=== PATIENT | male | born 1950 | race Caucasian/White ===

== ENCOUNTER → 2019-12-02 | Outpatient (REF) | payer MEDICARE, OTHER ==
[~2019-12-02] MED LIST: AMIO100T5 GT; ASPI-1 PO; GABA-843 PO; LISI-542 PO; METO50TA7 PO; NITR4TASL SL; PRIL20CA9 PO; TELM1TAB37 PO; TERA5CAP3 PO; ULTR37.54 PO; VITA100067 PO; XARE20TA PO; ZOCO40TA PO; ZOSTINJ SC
[2019-12-03 19:02] LABS: AMORPHOUS SEDIMENT SMALL (NEGATIVE); APPEARANCE, URINE CLEAR (CLEAR); BACTERIA, URINE AUTO NEGATIVE (NEGATIVE); BILIRUBIN, URINE AUTO NEGATIVE (NEGATIVE); BLOOD, URINE BLOOD NEGATIVE (NEGATIVE); COLOR, URINE YELLOW (YELLOW); GLUCOSE, URINE (UA) AUTO NEGATIVE (NEGATIVE); KETONE, URINE AUTO NEGATIVE (NEGATIVE); LEUKOCYTE ESTERASE, URINE AUTO NEGATIVE (NEGATIVE); MUCUS, URINE SMALL (NEGATIVE); NITRITE, URINE AUTO NEGATIVE (NEGATIVE); PROTEIN, URINE AUTO NEGATIVE (NEGATIVE); RBC, URINE AUTO 0 /HPF (0-3); SQUAMOUS EPITHELIAL CELL UR AU 0 /HPF (0-6); UROBILINOGEN, URINE AUTO 0.2 mg/dL (0.0-2.0); WBC, URINE AUTO 0 /HPF (0-3)
== END ==
LOC: M SMT 18:12
PROVIDERS: ATTEND Nurse Practitioner Family
DX: R10.9 Unspecified abdominal pain (principal)

== ENCOUNTER → 2020-10-31 | Outpatient (CLI) | payer MEDICARE, OTHER ==
[~2020-10-31] MED LIST changes: +GABA-282 PO; -GABA-843 PO; -LISI-542 PO; +LISI-898 PO
--- NOTE | 2020-11-01 11:45 | ECHO ---
DATE OF PROCEDURE: 10/31/2020 Age: 70 Gender: Male Height: 66 inches Weight: 215 pounds Body surface area: 2.06 m2 PATIENT LOCATION: Outpatient. REFERRING PHYSICIAN: Goran Rios M.D. INDICATION: Dyspnea. MEASUREMENTS: 2D Measurements: RV 4.2 cm LV 5.4 cm Septum 1.3 cm Posterior wall 1.3 cm Aortic Root 3.6 cm LA 5.4 cm LVEF 75% Doppler Measurements: AV 1.4 m/s LVOT 0.86 m/s LVOT diameter 1.8 cm Mean AV systolic gradient 8 mmHg Dimensionless index 0.57 MV-E 86 Early mitral deceleration time 190 msec E prime medial 6, E prime lateral 11.6 Average E/E prime ratio 9.8/PCWP - 14 mmHg PV 0.6 m/s Pulmonary artery acceleration time 116 msec PASP 30 mmHg IVC 2.2 cm COMMENTS: Underlying atrial fibrillation with controlled ventricular response. No intraventricular conduction disturbance. Somewhat challenging study in light of the patients body habitus, but diagnostically useful information was still obtained. M-mode and two-dimensional echocardiography was performed with pulse, continuous wave, color flow, and tissue Doppler studies. Mild symmetrical left ventricular hypertrophy with normal to hyperkinetic wall motion. Prominently dilated left atrium. Unable to define left ventricular diastolic function due to atrial fibrillation, but his current estimated mean left atrial pressure was within normal limits. Mildly dilated right heart chambers with normal wall motion and current estimated pulmonary arterial pressure upper limits of normal to borderline increased. Mildly dilated inferior vena cava with normal respiratory collapse against an elevated central venous pressure at this time. Normal aortic dimensions. Three equal size aortic cusps with moderate cusp thickening and somewhat reduced cusp separation, yet his mean transvalvular gradient and dimensionless index are within normal limits against aortic stenosis. Very mild aortic insufficiency. Degenerative changes of the mitral valve apparatus with adequate leaflet excursion and no posterior systolic buckling. Mild mitral insufficiency. Normal appearing tricuspid valve with trace insufficiency. No apparent intracardiac mass or pericardial effusion. MTDD
== END ==
LOC: M CARPUL 09:17
PROVIDERS: ATTEND Internal Medicine Cardiovascular Disease
DX: R06.09 Other forms of dyspnea (principal); I48.91 Unspecified atrial fibrillation

== ENCOUNTER → 2022-03-26 | Outpatient (CLI) | payer MEDICARE, OTHER ==
[~2022-03-26] MED LIST changes: +ASPI81CH33 PO; +ATOR1TAB19; +FENO145T7; +FURO40TA2; +GABA-283 PO; -LISI-898 PO; +LISI5TAB11 PO; +OMEP-173; +TAMS1CAP17; +ULTR1TAB PO; -ULTR37.54 PO; +VALA500T5
== END ==
LOC: M LABSMTC 10:01
PROVIDERS: ATTEND Anesthesiology
DX: Z01.812 Encounter for preprocedural laboratory examination (principal); Z20.822 Contact with and (suspected) exposure to COVID-19

== ENCOUNTER 2022-03-29 07:32 | Day surgery (SDC) | payer MEDICARE, OTHER ==
[~2022-03-29] VITALS: Ht 172.7 cm; Wt 101.7 kg
[~2022-03-29 07:32] MED LIST changes: -ATOR1TAB19; +ATOR1TAB19 PO; +BSS IRR 500ML/OMIDRIA 4ML IRR BAG (OR ONLY) As Ordered ONE; +CEFUROXIME 1MG/0.1ML INTRACAMERAL INJ As Ordered ONE; -FENO145T7; +FENO145T7 PO; -FURO40TA2; +FURO40TA2 PO; +LIDOCAINE 1% SDV 5ML VIAL As Ordered ONE; +OFLOXACIN 0.3 % (OCUFLOX) OPTH SOL 5ML OS SCH; +PHENYLEPHRINE 2.5% OPHTH SOL 2ML OS SCH; +PROPARACAINE 0.5% OPHTH SOL 15ML OS ONE; -TAMS1CAP17; +TAMS1CAP17 PO; +TROPICAMIDE 1% OPHTH SOLN 2ML OS SCH
[2022-03-29] MEDS ORDERED: VITMTA PO (08:10)
[2022-03-29] MEDS ORDERED: NOXI1TAB PO (08:10)
[2022-03-29] MEDS ORDERED: MIDAZOLAM INJ 2MG/2ML VIAL (J2250 PER 1MG) As Ordered ONE (09:35)
[2022-03-29 09:49] VITALS: BP 147/68
== END 2022-03-29 10:21 | disposition home or self-care (01) ==
LOC: M SDC 07:32
PROVIDERS: ATTEND Ophthalmology
DX: H25.12 Age-related nuclear cataract, left eye (principal); I10 Essential (primary) hypertension; E78.5 Hyperlipidemia, unspecified; Z79.899 Other long term (current) drug therapy; Z79.01 Long term (current) use of anticoagulants
CPT/HCPCS: 66984; J0697; J1097; J2250; V2632

== ENCOUNTER → 2022-05-16 | Outpatient (CLI) | payer MEDICARE, OTHER ==
[~2022-05-16] MED LIST changes: -BSS IRR 500ML/OMIDRIA 4ML IRR BAG (OR ONLY) As Ordered ONE; -CEFUROXIME 1MG/0.1ML INTRACAMERAL INJ As Ordered ONE; -LIDOCAINE 1% SDV 5ML VIAL As Ordered ONE; +NOXI1TAB PO; -OFLOXACIN 0.3 % (OCUFLOX) OPTH SOL 5ML OS SCH; -OMEP-173; +OMEP-173 PO; -PHENYLEPHRINE 2.5% OPHTH SOL 2ML OS SCH; -PROPARACAINE 0.5% OPHTH SOL 15ML OS ONE; -TROPICAMIDE 1% OPHTH SOLN 2ML OS SCH; -VALA500T5; +VALA500T5 PO; +VITMTA PO
== END ==
LOC: M LABSMTC 11:10
PROVIDERS: ATTEND Anesthesiology
DX: Z01.812 Encounter for preprocedural laboratory examination (principal); Z11.52 Encounter for screening for COVID-19

== ENCOUNTER 2022-05-21 07:32 | Day surgery (SDC) | payer MEDICARE, OTHER ==
[~2022-05-21] VITALS: Ht 172.7 cm; Wt 102.0 kg
[~2022-05-21 07:32] MED LIST changes: +CEFUROXIME 1MG/0.1ML INTRACAMERAL INJ As Ordered ONE; +CYCLOPENTOLATE 1% OPHTH SOLN 2 ML BTL OD SCH; +LIDOCAINE 1% 1ML PF SYRINGE (OR EYE CASES) As Ordered ONE; +OFLOXACIN 0.3 % (OCUFLOX) OPTH SOL 5ML OD SCH; +PHENYLEPHRINE 2.5% OPHTH SOL 2ML OD SCH; +PROPARACAINE 0.5% OPHTH SOL 15ML OD ONE; +TROPICAMIDE 1% OPHTH SOLN 2ML OD SCH
[2022-05-21] MEDS ORDERED: BSS IRR 500ML/OMIDRIA 4ML IRR BAG (OR ONLY) As Ordered ONE (07:48)
[2022-05-21] MEDS ORDERED: fentaNYL 100 MCG/2 ML INJECTION As Ordered ONE (08:21)
[2022-05-21] MEDS ORDERED: MIDAZOLAM INJ 2MG/2ML VIAL (J2250 PER 1MG) As Ordered ONE (08:22)
[2022-05-21 10:30] VITALS: BP 134/81
== END 2022-05-21 10:58 | disposition home or self-care (01) ==
LOC: M SDC 07:32
PROVIDERS: ATTEND Ophthalmology
DX: H25.11 Age-related nuclear cataract, right eye (principal); I10 Essential (primary) hypertension; E78.5 Hyperlipidemia, unspecified; I48.91 Unspecified atrial fibrillation; R12 Heartburn; G47.30 Sleep apnea, unspecified
CPT/HCPCS: 66984; J0697; J1097; J2250; J3010; V2632

== ENCOUNTER → 2022-08-31 | Outpatient (CLI) | payer MEDICARE, OTHER ==
[~2022-08-31] MED LIST changes: -CEFUROXIME 1MG/0.1ML INTRACAMERAL INJ As Ordered ONE; -CYCLOPENTOLATE 1% OPHTH SOLN 2 ML BTL OD SCH; -LIDOCAINE 1% 1ML PF SYRINGE (OR EYE CASES) As Ordered ONE; -OFLOXACIN 0.3 % (OCUFLOX) OPTH SOL 5ML OD SCH; -PHENYLEPHRINE 2.5% OPHTH SOL 2ML OD SCH; -PROPARACAINE 0.5% OPHTH SOL 15ML OD ONE; +SIMV-254 PO; -TROPICAMIDE 1% OPHTH SOLN 2ML OD SCH; -ZOCO40TA PO
== END ==
LOC: M SLEEP 20:00
PROVIDERS: ATTEND Physician Assistant
DX: G47.33 Obstructive sleep apnea (adult) (pediatric) (principal)

== ENCOUNTER → 2023-02-07 | Outpatient (CLI) | payer MEDICARE, OTHER ==
[~2023-02-07] MED LIST changes: +AMIO100T4 GT; -AMIO100T5 GT; -GABA-283 PO; +GABA-284 PO
== END ==
LOC: M SLEEP 20:00
PROVIDERS: ATTEND Physician Assistant
DX: G47.33 Obstructive sleep apnea (adult) (pediatric) (principal)

== ENCOUNTER 2024-03-31 07:42 | Day surgery (SDC) | payer MEDICARE, OTHER ==
[~2024-03-31] VITALS: Ht 172.7 cm; Wt 104.1 kg
[~2024-03-31 07:42] MED LIST changes: +ALLO100T PO; +AMLO2.5T3 PO; +GABA-1172 PO; -GABA-282 PO; +MULTTAB86 PO; +NS 1,000 ML IV ONE; +VITA100093 PO
[2024-03-31] MEDS ORDERED: propofoL 200 MG/20 ML VIAL As Ordered ONE (09:30)
[2024-03-31] MEDS ORDERED: LIDOCAINE 2% 100MG/5ML SDV (FOR ANES.) As Ordered ONE (09:30)
[2024-03-31 10:05] VITALS: TEMP 97.8
[2024-03-31 10:26] VITALS: BP 130/83; O2SAT 96
== END 2024-03-31 10:27 | disposition home or self-care (01) ==
LOC: M OPP 07:42
PROVIDERS: ATTEND Surgery
DX: Z12.11 Encounter for screening for malignant neoplasm of colon (principal); D12.5 Benign neoplasm of sigmoid colon; K57.30 Diverticulosis of large intestine without perforation or abscess without bleeding; I48.91 Unspecified atrial fibrillation; I10 Essential (primary) hypertension; E78.5 Hyperlipidemia, unspecified; R12 Heartburn; F10.10 Alcohol abuse, uncomplicated; G47.33 Obstructive sleep apnea (adult) (pediatric); Z79.899 Other long term (current) drug therapy

== ENCOUNTER → 2025-03-18 | Outpatient (CLI) | payer MEDICARE, OTHER ==
[~2025-03-18] MED LIST changes: -NS 1,000 ML IV ONE
[2025-03-18 11:21] LABS: PLATELET COUNT, AUTOMATED 242 10^3/uL (150-450)
[2025-03-18 11:47] LABS: PROSTATIC SPECIFIC AG MONITOR 2.59 NG/ML (< 4.00)
[2025-03-18 11:50] LABS: ALT/SGPT 19.0 U/L (7.0-40); AST/SGOT 23.0 U/L (<34); CALCIUM LEVEL 8.6 MG/DL (8.3-10.6); CARBON DIOXIDE LEVEL 26.0 MMOL/L (20-31); CHLORIDE LEVEL 109.0 MMOL/L (98-107); CHOLESTEROL LEVEL 150.0 MG/DL (<200); CHOLESTEROL RISK RATIO 3.35 (<5); CREATININE FOR GFR 1.07 MG/DL (0.70-1.30); GLOMERULAR FILTRATION RATE 72.4 (>42); LDL CHOLESTEROL 65.3 MG/DL (<100); NON-HDL-C 105.3 MG/DL; POTASSIUM SERUM 4.3 MMOL/L (3.5-5.1); SODIUM LEVEL 146.0 MMOL/L (136-145); TRIGLYCERIDES LEVEL 200.0 MG/DL (<150)
[2025-03-18 16:49] LABS: APPEARANCE, URINE TURBID (CLEAR); BACTERIA, URINE AUTO NEGATIVE (NEGATIVE); BILIRUBIN, URINE AUTO NEGATIVE (NEGATIVE); BLOOD, URINE BLOOD NEGATIVE (NEGATIVE); GLUCOSE, URINE (UA) AUTO NEGATIVE (NEGATIVE); KETONE, URINE AUTO NEGATIVE (NEGATIVE); LEUKOCYTE ESTERASE, URINE AUTO NEGATIVE (NEGATIVE); MUCUS, URINE SMALL (NEGATIVE); NITRITE, URINE AUTO NEGATIVE (NEGATIVE); PROTEIN, URINE AUTO 1+ mg/dL (NEGATIVE); RBC, URINE AUTO 0 /HPF (0-3); SPECIFIC GRAVITY URINE AUTO 1.023 (1.002-1.035); SQUAMOUS EPITHELIAL CELL UR AU 0 /HPF (0-6); UROBILINOGEN, URINE AUTO 4.0 mg/dL (0.0-2.0); WBC, URINE AUTO 1 /HPF (0-3)
== END ==
LOC: M PLALAB 09:12
PROVIDERS: ATTEND Physician Assistant
DX: I10 Essential (primary) hypertension (principal); E78.2 Mixed hyperlipidemia; Z12.5 Encounter for screening for malignant neoplasm of prostate; R35.1 Nocturia; M10.9 Gout, unspecified; I48.20 Chronic atrial fibrillation, unspecified